=== PATIENT | male | born 1985 | race Caucasian/White ===

== ENCOUNTER 2020-11-10 21:17 | Inpatient (IN) | payer SELFPAY ==
[2020-11-10] MEDS ORDERED: NS 1,000 ML IV ONE (21:25)
[2020-11-10] MEDS ORDERED: HALOPERIDOL 5MG/ML VIAL (J1630 PER 1) IM ONE (21:30)
[2020-11-10] MEDS ORDERED: diphenhydrAMINE 50MG/ML VIAL (J1200) IM ONE (21:30)
[2020-11-10] MEDS ORDERED: diphenhydrAMINE 50MG/ML VIAL (J1200) As Ordered ONE (21:31)
[2020-11-10] MEDS ORDERED: HALOPERIDOL 5MG/ML VIAL (J1630 PER 1) As Ordered ONE (21:31)
[2020-11-10] MEDS ORDERED: diphenhydrAMINE 50MG/ML VIAL (J1200) IM STA (21:40)
[2020-11-10 21:56] LABS: BASO # 0.1 10^3/uL (0.0-0.2); BASO % 0.9 % (0.0-1.0); EOS # 0.3 10^3/uL (0.0-0.5); EOS % 3.6 % (0.0-3.0); HEMATOCRIT 39.4 % (42.0-52.0); LYMPH # 2.7 10^3/uL (1.5-5.0); LYMPH % 38.5 % (24.0-44.0); MEAN CORPUSCULAR HEMOGLOBIN 29.3 pg (27.0-33.0); MEAN CORPUSCULAR VOLUME 88.7 fl (80.0-96.0); MONO # 0.8 10^3/uL (0.0-0.8); MONO % 10.8 % (2.0-8.0); NEUTROPHILS # 3.2 10^3/uL (1.5-8.5); NEUTROPHILS % 45.9 % (36.0-66.0); PLATELET COUNT, AUTOMATED 209 10^3/uL (150-450); RED BLOOD COUNT 4.44 10^6/uL (4.30-6.10)
[2020-11-10 22:23] LABS: AMPHETAMINES LEVEL URINE NEGATIVE (NEGATIVE); BARBITURATES URINE NEGATIVE (NEGATIVE); BENZODIAZEPINES URINE POSITIVE (NEGATIVE); CANNABINOIDS URINE POSITIVE (NEGATIVE); COCAINE METABOLITE URINE POSITIVE (NEGATIVE); METHADONE URINE NEGATIVE (NEGATIVE); OPIATES URINE POSITIVE (NEGATIVE); PHENCYCLIDINE URINE NEGATIVE (NEGATIVE)
[2020-11-10 22:32] LABS: ACETAMINOPHEN LEVEL < 2.0 UG/ML (10.0-30.0); ALT/SGPT 13 U/L (12-78); BILIRUBIN,DIRECT < 0.1 MG/DL (0.0-0.2); BILIRUBIN,TOTAL 0.4 MG/DL (0.2-1.0); BLOOD UREA NITROGEN 14 MG/DL (7-18); CALCIUM LEVEL 8.9 MG/DL (8.5-10.1); CARBON DIOXIDE LEVEL 30 MEQ/L (21-32); CHLORIDE LEVEL 108 MEQ/L (98-107); CPK CREATINE PHOSPHOKINASE 78 U/L (39-308); CREATININE FOR GFR 1.16 MG/DL (0.70-1.30); ETHYL ALCOHOL (ETHANOL) < 0.003 % (0.000-0.010); GLOMERULAR FILTRATION RATE > 60.0 (>60); GLUCOSE, FASTING 88 MG/DL (70-100); POTASSIUM SERUM 4.9 MEQ/L (3.5-5.1); SALICYLATE LEVEL < 1.7 MG/DL (5.0-30.0); SODIUM LEVEL 143 MEQ/L (136-145); TOTAL PROTEIN 7.7 GM/DL (6.4-8.2)
[2020-11-11] VITALS (25 sets, daily range): BP systolic 109–191; BP diastolic 60–97
[2020-11-11] MEDS ORDERED: ETOMIDATE INJ 20MG/10ML VIAL IV ONE (01:50)
[2020-11-11] MEDS ORDERED: propofoL 1,000 MG in IV 1 EA IV SCH (01:50)
[2020-11-11] MEDS ORDERED: SUCCINYLCHOLINE INJ 200 MG/10 ML VIAL (J0330) IV ONE (01:50)
--- NOTE | 2020-11-11 02:51 | REPVR ---
PROCEDURE INFORMATION: Exam: XR Chest Exam date and time: 11/11/2020 2:35 AM Age: 35 years old Clinical indication: Post intubation, tube placement TECHNIQUE: Imaging protocol: XR of the chest. Views: 1 view. COMPARISON: No relevant prior studies available. FINDINGS: Tubes, catheters and devices: An endotracheal tube is seen overlying the trachea, and the tip terminates 2.2 cm above the oneyda. Lungs: Unremarkable. No consolidation. No pulmonary edema. Pleural spaces: Unremarkable. No pleural effusion. No pneumothorax. Heart/Mediastinum: Unremarkable. No cardiomegaly. Bones/joints: There is a chronic healed fracture deformity involving the right proximal humeral diaphysis. IMPRESSION: Endotracheal tube terminating in the trachea 2.2 cm above the oneyda. Electronically signed by: Maico Burkett On 11/11/2020 02:51:16 AM
[2020-11-11 03:47] LABS: ABG BASE EXCESS 2.7 (-2.0-2.0); ABG HCO3 26.5 MEQ/L (22.0-26.0); ABG O2 SATURATION 98.7 % (95.0-99.0); ABG PARTIAL PRESSURE CO2 37.7 mmHg (35.0-45.0); ABG PARTIAL PRESSURE O2 135.9 mmHg (75.0-100.0); ABG STANDARD HCO3 26.9 MEQ/L (22.0-26.0); ABG TOTAL CO2 27.6 MEQ/L (22.0-29.0); ABG pH (ARTERIAL) 7.464 UNITS (7.350-7.450)
[2020-11-11] MEDS: NS 1,000 ML IV SCH ×2 (03:54→09:43)
[2020-11-11] MEDS: IPRATROPIUM 0.5MG/ALBUTEROL 2.5MG INH SOL UD 3ML (DUONEB) NEB SCH ×6 (04:00→23:59)
[2020-11-11 04:02] LABS: RSV AMPLIFICATION NEGATIVE (NEGATIVE)
[2020-11-11] MEDS: MIDAZOLAM INJ 2MG/2ML VIAL (J2250 PER 1MG) IV PRN ×8 (05:05→21:15)
[2020-11-11] MEDS: HEPARIN SOD (PORCINE) 5000UNITS/ML 1ML VIAL/SYRINGE SC SCH ×3 (05:12→21:06)
[2020-11-11] MEDS: propofoL 1,000 MG in IV 1 EA IV SCH ×5 (05:12→22:31)
--- NOTE | 2020-11-11 06:27 | ECGEPIP ---
[facility] [place] - ED Test Date: 2020-11-10 Pat Name: LD GARCIA Department: Room: - Gender: Male Bsa Officer: stalin : 1985 Requested By: DEE Reyes Order Number: [id number] Reading MD: Nakia Alanis Measurements Intervals [place] Rate: 63 P: 56 RI: 136 QRS: 71 QRSD: 100 T: 51 QT: 404 QTc: 413 Interpretive Statements Normal sinus rhythm with sinus arrhythmia Nonspecific ST T wave changes Delayed R wave progression No prior ECG for comparison Electronically Signed on 11-11-2020 6:27:27 EDT by Nakia Alanis
--- NOTE | 2020-11-11 08:45 | HPE ---
HISTORY AND PHYSICAL/CRITICAL CARE ADMIT NOTE DATE OF ADMISSION: 11/11/2020 START TIME: 314 STOP TIME: 349 HISTORY OF PRESENT ILLNESS: I was called to attend Chepe Bobo here in the emergency department. The patient has been examined, chart reviewed, and I spoke at length with the staff, including Dr. Brown. In essence, a 35-year-old gentleman unknown to this institution who was dropped off by friends at the ER. Apparently he was quite combative, abusive to staff, stating that he took large amounts of Xanax (20 mg) in an attempt to kill himself. Of interest, however, is that his tox screen was positive for not only benzodiazepines, but for cocaine, cannabinoids, as well as opiates. He was quite disruptive, combative, and requiring restraints. He was given Haldol. He then was somnolent. Quite some time later, he had issues with sonorous respirations. Nasal trumpet was placed. He did well for some time. He then had episodes of oxygen desaturations and apneic spells and was then intubated. ALLERGIES: To medications unobtainable. PAST MEDICAL HISTORY: Unobtainable. SOCIAL HISTORY: Unobtainable. FAMILY HISTORY: Unobtainable. PHYSICAL EXAMINATION: GENERAL APPEARANCE: Currently reveals a sedate gentleman who appears his stated age here in the ER orally intubated with an orogastric tube in place. VITAL SIGNS: Rate is generally in the 60s with a sinus mechanism. Blood pressure 138/100, respiratory rate currently 18 via the ventilator. HEENT: Does show pupils are small, but react. They are both midline. Sclerae clear and nonicteric. Trachea is in the midline. Mucous membranes of the nose and mouth are moist. Dentition in good repair. CHEST: Clear to both auscultation and percussion. Expansion symmetric and no significant focal adventitious breath sounds are identified. CARDIAC: Distant and regular. Peripheral pulses are palpable. No obvious edema. There is no murmur, gallop or rub. ABDOMEN: Soft. There are active bowel sounds. No obvious organomegaly or masses. EXTREMITIES: Do show some superficial lacerations and multiple tattoos, but no cyanosis or clubbing. NEUROLOGIC: He is quite sedate and currently on propofol. PSYCHIATRIC: Shows him to be sedate. IMAGING DATA: Chest x-ray shows the endotracheal tube in good position. No obvious infiltrates or pneumothorax. LABORATORY DATA: Other laboratories show a white blood cell count of 7.0, hemoglobin 13.0, platelet count of 209,000, segs 46%, and no bands. Sodium 143, K 4.9, chloride 108, CO2 of 30, BUN 14, creatinine 1.16. LFTs are unremarkable. Tox screen as outlined above. His first blood gas in the ER prior to intubation had a pH of 7.278, pCO2 of 64.8, and a pO2 of 106. Repeat blood gas now on an assist control of 18, tidal volume 450, PEEP of 5, FiO2 of 40% has a pH of 7.464, pO2 of 37.7, and a PaO2 of 136. IMPRESSION: 1. Polypharmacy overdose in a suicide attempt. 2. Respiratory failure on the basis of the above. RECOMMENDATIONS: At this point, he is intubated, sedated, and mechanically ventilated. We will assure adequate volume resuscitation. Ventilator changes will be made in view of his most recent arterial blood gas. For now, he will be sedated. Ulcer and DVT prophylaxis have been ordered. We will monitor his chest x-ray in view of his mental status issues, but there is no episode of vomiting and it is unlikely that he has aspirated. When he is able to be extubated, he will need psychiatric evaluation, as clearly he stated a suicide attempt. At this point, we will facilitate transfer to the ICU. Further recommendations will be made in the progress record as new information becomes available. I left the bedside at 0350 hours. CRITICAL CARE TIME: 35 minutes delivered at the bedside not including procedures.
[2020-11-11] MEDS: PANTOPRAZOLE 40MG VIAL (C9113 PER 1) IV SCH (09:01)
[2020-11-11] MEDS: CHLORHEXIDINE GLUCONATE 0.12 % 15ML UDC (PERIDEX ORAL RINSE) MT SCH ×2 (09:01→21:05)
[2020-11-11 14:08] LABS: VENOUS BASE EXCESS 2.5 (-2.0-2.0); VENOUS HCO3 26.6 MEQ/L (23.0-27.0); VENOUS O2 SATURATION 98.9 % (60.0-80.0); VENOUS PARTIAL PRESSURE O2 142.4 mmHg (30.0-50.0); VENOUS PH 7.451 UNITS (7.330-7.430); VENOUS STANDARD HCO3 26.8 MEQ/L; VENOUS TOTAL CO2 27.8 MEQ/L (24.0-28.0)
[2020-11-11] MEDS ORDERED: LORazepam 2 MG/ML VIAL IM PRN (14:10)
[2020-11-11] MEDS: HALOPERIDOL 5MG/ML VIAL (J1630 PER 1) IV PRN ×2 (14:31→17:46)
[2020-11-11 14:43] LABS: BLOOD UREA NITROGEN 13 MG/DL (7-18); CALCIUM LEVEL 8.3 MG/DL (8.5-10.1); CARBON DIOXIDE LEVEL 27 MEQ/L (21-32); CHLORIDE LEVEL 111 MEQ/L (98-107); CREATININE FOR GFR 0.96 MG/DL (0.70-1.30); GLOMERULAR FILTRATION RATE > 60.0 (>60); GLUCOSE, FASTING 88 MG/DL (70-100); POTASSIUM SERUM 3.8 MEQ/L (3.5-5.1); SODIUM LEVEL 143 MEQ/L (136-145)
[2020-11-11] MEDS: KCL 20MEQ IN D5/0.45NS 1000ML 1,000 ML IV SCH ×2 (15:12→22:06)
[2020-11-11] MEDS: MORPHINE 2 MG/ML 1ML VIAL (J2270) IV PRN (21:15)
[2020-11-12] VITALS (22 sets, daily range): BP systolic 116–152; BP diastolic 63–90
[2020-11-12] MEDS: MIDAZOLAM INJ 2MG/2ML VIAL (J2250 PER 1MG) IV PRN ×6 (00:48→21:07)
[2020-11-12] MEDS: MORPHINE 2 MG/ML 1ML VIAL (J2270) IV PRN ×2 (00:55→03:42)
[2020-11-12] MEDS: propofoL 1,000 MG in IV 1 EA IV SCH ×9 (01:31→22:58)
[2020-11-12] MEDS: IPRATROPIUM 0.5MG/ALBUTEROL 2.5MG INH SOL UD 3ML (DUONEB) NEB SCH ×5 (03:12→20:07)
[2020-11-12] MEDS: KCL 20MEQ IN D5/0.45NS 1000ML 1,000 ML IV SCH ×3 (04:42→19:57)
[2020-11-12 04:58] LABS: BASO # 0.1 10^3/uL (0.0-0.2); BASO % 0.5 % (0.0-1.0); EOS % 0.1 % (0.0-3.0); HEMATOCRIT 37.4 % (42.0-52.0); HEMOGLOBIN 12.7 g/dl (13.5-17.5); LYMPH # 1.4 10^3/uL (1.5-5.0); LYMPH % 9.5 % (24.0-44.0); MEAN CORPUSCULAR HEMOGLOBIN 29.3 pg (27.0-33.0); MEAN CORPUSCULAR VOLUME 86.2 fl (80.0-96.0); MONO % 6.7 % (2.0-8.0); NEUTROPHILS % 82.6 % (36.0-66.0); PLATELET COUNT, AUTOMATED 178 10^3/uL (150-450); RED BLOOD COUNT 4.34 10^6/uL (4.30-6.10); WHITE BLOOD COUNT 14.5 10^3/uL (4.0-10.0)
[2020-11-12 05:31] LABS: ALBUMIN 3.2 GM/DL (3.2-5.2); ALT/SGPT 14 U/L (12-78); BILIRUBIN,TOTAL 0.5 MG/DL (0.2-1.0); BLOOD UREA NITROGEN 9 MG/DL (7-18); CALCIUM LEVEL 8.3 MG/DL (8.5-10.1); CARBON DIOXIDE LEVEL 27 MEQ/L (21-32); CHLORIDE LEVEL 108 MEQ/L (98-107); CHOLESTEROL LEVEL 140 MG/DL (< 200); CPK CREATINE PHOSPHOKINASE 423 U/L (39-308); CREATININE FOR GFR 1.03 MG/DL (0.70-1.30); GLOMERULAR FILTRATION RATE > 60.0 (>60); GLUCOSE, FASTING 140 MG/DL (70-100); LDH LACTATE DEHYDROGENASE 232 U/L (87-241); PHOSPHORUS LEVEL 2.7 MG/DL (2.5-4.9); POTASSIUM SERUM 3.5 MEQ/L (3.5-5.1); SODIUM LEVEL 142 MEQ/L (136-145); TOTAL PROTEIN 6.4 GM/DL (6.4-8.2); TRIGLYCERIDES LEVEL 104 MG/DL (<150)
[2020-11-12] MEDS: HEPARIN SOD (PORCINE) 5000UNITS/ML 1ML VIAL/SYRINGE SC SCH ×3 (05:36→21:06)
[2020-11-12 05:49] LABS: ABG BASE EXCESS 0.7 (-2.0-2.0); ABG HCO3 24.4 MEQ/L (22.0-26.0); ABG O2 SATURATION 94.6 % (95.0-99.0); ABG PARTIAL PRESSURE CO2 36.3 mmHg (35.0-45.0); ABG PARTIAL PRESSURE O2 68.6 mmHg (75.0-100.0); ABG TOTAL CO2 25.6 MEQ/L (22.0-29.0); ABG pH (ARTERIAL) 7.446 UNITS (7.350-7.450)
--- NOTE | 2020-11-12 08:00 | REP ---
INDICATION: Resp Failure COMPARISON: 11/11/2020 TECHNIQUE: Portable AP view of the chest FINDINGS: Endotracheal tube is approximately 20 mm from the oneyda. Nasogastric tube in satisfactory position. Mediastinum and cardiac silhouette are stable and within normal limits. Lung richards are relatively clear although trace right basilar atelectasis cannot be excluded. No obvious effusion. No pneumothorax. Skeletal structures are intact. IMPRESSION: 1. Lines and tubes as described above. 2. Cannot exclude trace right basilar atelectasis. <Electronically signed by Hector Ashton > 11/12/20 7502
[2020-11-12] MEDS: PANTOPRAZOLE 40MG VIAL (C9113 PER 1) IV SCH (08:22)
[2020-11-12] MEDS: CHLORHEXIDINE GLUCONATE 0.12 % 15ML UDC (PERIDEX ORAL RINSE) MT SCH ×2 (08:22→21:06)
[2020-11-12] MEDS ORDERED: POTASSIUM CHLORIDE 10% LIQ 20 MEQ/15 ML UDC PO ONE (09:15)
--- NOTE | 2020-11-12 09:33 | REP ---
INDICATION: R/O foreign body..retained drug paraphernalia COMPARISON: None TECHNIQUE: Axial noncontrast images from the lung bases to the pubic symphysis with coronal and sagittal reformations. This CT examination was performed using the following dose reduction techniques: Automated exposure control, adjustment of mA and/or kv according to the patient's size, and use of iterative reconstruction technique. FINDINGS: Lung bases demonstrate right middle lobe and bilateral lower lobe consolidations (right greater than left) along with partial collapse to the right lower lobe and left lower lobe atelectasis. No significant pleural effusions are identified. Liver, spleen, pancreas, gallbladder, bilateral adrenal glands and kidneys are normal. The enteric system is unremarkable and without obstruction or acute inflammatory process. Normal terminal ileum and appendix identified in the right lower quadrant. Pelvis demonstrates normal bladder with Fuller catheter and age-appropriate prostate/seminal vesicles. No ascites. No free air. No adenopathy. No focal inflammatory stranding. Abdominal aorta without aneurysm. Musculoskeletal structures are intact and without acute osseous abnormality. There is no evidence for foreign body. IMPRESSION: Significant pulmonary parenchymal changes most consistent with multifocal pneumonia (right greater than left). No acute abdominopelvic pathology appreciated. No evidence for foreign body. <Electronically signed by Hector Ashton > 11/12/20 0993
[2020-11-12] MEDS: PIPERACILLIN/TAZOBACTAM SOD 3.375 GM in D5W MINI-BAG PLUS 50 ML IV SCH ×3 (09:37→21:07)
--- NOTE | 2020-11-12 10:19 | CCN ---
CRITICAL CARE NOTE DATE: 11/12/2020 START TIME: 08 STOP TIME: 0900 SUBJECTIVE: I again attended Chepe Smith here in the Intensive Care Unit. Patient was examined and chart was reviewed, I spoke at length with the nurse at the bedside. T-max overnight 100.1, blood pressure 120 to 150s, heart rate 100 to 120 with a sinus mechanism, respiratory rate generally is over the ventilator. I and O's midnight to midnight: 4493 ml in with 2365 ml out. Drug contraband in plastic bags were found within his rectum last night when the nurses tried to place a rectal probe. One bag is removed and the nurse reports there are other bags palpable but were unable to be retrieved even after an enema. Most recent laboratories shows a white blood cell count of 14.5, hemoglobin 12.7, platelet count 178,000, 82% segs, no bands. Sodium 142, K 3.5, chloride 108, CO2 27, BUN 9, creatinine 1.03, glucose of 140. CK mildly elevated at 423. The rest of his LFTs are unremarkable. Blood gas done this morning on a PRBC rate of 60 and tidal volume 450, PEEP of 5, FIO2 of 21%, has a pH of 7.446, pCO2 36.3, pO2 of 68.6. Chest x-ray shows the endotracheal tube in good position. I do believe there is an early infiltrate at the right base. I cannot rule out one at the left base consistent with his presentation and suspected aspiration. OBJECTIVE: GENERAL: He is sedated but moves all extremities when aroused. When sedation is lightened, he is agitated, uncooperative and combative. HEENT: Pupils react, sclera clear. Trachea is in the midline. Oral endotracheal and orogastric tube are in place. Membranes are moist. NECK: No obvious JVD or adenopathy. Trachea is in the midline. CHEST: Clear to both auscultation and percussion. Expansion symmetric and no significant focal adventitious breath sounds are identified. There may be some faint crackles at the extreme bases but no convincing rhonchi. CARDIAC: Borderline tachycardic but regular. Peripheral pulses palpable, no edema. ABDOMEN: Soft, active bowel sounds. No convincing organomegaly or masses. EXTREMITIES: No cyanosis or clubbing. NEUROLOGIC: He is sedate and moves all extremities. He is currently calm on Propofol. CURRENT MEDICATIONS: 1. Haldol and Ativan p.r.n. 2. Propofol drip. 3. DVT prophylaxis with Heparin and Protonix. 4. Morphine p.r.n. 5. Antibiotics were started this morning. 6. He gets p.r.n. Versed. ASSESSMENT: The most pressing problems requiring my immediate presence at the bedside: 1. Hypoxemic respiratory failure secondary to polypharmacy overdose. 2. Suicidal gesture with ingestion of large amounts of benzodiazepines. 3. Polypharmacy overdose. 4. Aspiration pneumonitis. At this point, we will have Family Medicine Physician see if they can get us more information regarding his whereabouts and history prior to his presentation. He still has foreign body within the rectal vault according to the nursing staff. Will get a CT of the abdomen and pelvis to rule out others. Once we have that information, we will likely add cathartics. We will begin antimicrobials as with an elevated white count, a low grade fever and his chest x-ray I do believe he likely aspirated at the time of presentation. Will check a procalcitonin. He will need psychiatric evaluation formally and a sitter once he is to be extubated. Due to the fact that he presented with a large amount of drug ingestion and statements concerning self-harm he will clearly need inpatient evaluation and be kept involuntarily. At this point we will proceed as outlined above. My hope is that within the next 24 to 48 hours we can achieve enough of control of his behavior to safely extubate him. If we are not able to extubate him by tomorrow morning we will need to begin enteral feeds. Ulcer and DVT prophylaxis were placed. We will replete his electrolytes. Overall, in view of the above he remains critically ill. I left the bedside at 0900 hours. Forty minutes of critical care time at the bedside not including procedures.
[2020-11-12] MEDS ORDERED: SORBITOL 70% 30ML UNIT DOSE CUP NG ONE (12:00)
[2020-11-12] MEDS ORDERED: ETOMIDATE INJ 20MG/10ML VIAL ONE (15:14)
[2020-11-12] MEDS ORDERED: SUCCINYLCHOLINE 100 MG/5 ML SYRINGE (J0330) ONE (15:14)
[2020-11-12 15:29] LABS: BLOOD UREA NITROGEN 8 MG/DL (7-18); CALCIUM LEVEL 8.2 MG/DL (8.5-10.1); CARBON DIOXIDE LEVEL 24 MEQ/L (21-32); CHLORIDE LEVEL 107 MEQ/L (98-107); GLOMERULAR FILTRATION RATE > 60.0 (>60); GLUCOSE, FASTING 124 MG/DL (70-100); POTASSIUM SERUM 3.7 MEQ/L (3.5-5.1); SODIUM LEVEL 139 MEQ/L (136-145)
[2020-11-13] VITALS (12 sets, daily range): BP systolic 118–172; BP diastolic 59–90
[2020-11-13] MEDS: MIDAZOLAM INJ 2MG/2ML VIAL (J2250 PER 1MG) IV PRN ×4 (00:31→08:39)
[2020-11-13] MEDS: IPRATROPIUM 0.5MG/ALBUTEROL 2.5MG INH SOL UD 3ML (DUONEB) NEB SCH ×7 (00:57→23:14)
[2020-11-13] MEDS: propofoL 1,000 MG in IV 1 EA IV SCH ×3 (01:18→06:54)
[2020-11-13] MEDS: KCL 20MEQ IN D5/0.45NS 1000ML 1,000 ML IV SCH ×2 (04:09→06:55)
[2020-11-13 05:04] LABS: BASO # 0.1 10^3/uL (0.0-0.2); BASO % 0.5 % (0.0-1.0); EOS # 0.2 10^3/uL (0.0-0.5); EOS % 1.3 % (0.0-3.0); HEMATOCRIT 35.4 % (42.0-52.0); HEMOGLOBIN 11.8 g/dl (13.5-17.5); LYMPH # 1.7 10^3/uL (1.5-5.0); LYMPH % 10.8 % (24.0-44.0); MEAN CORPUSCULAR HEMOGLOBIN 28.9 pg (27.0-33.0); MEAN CORPUSCULAR HGB CONC 33.3 g/dl (32.0-36.5); MEAN CORPUSCULAR VOLUME 86.6 fl (80.0-96.0); MONO # 0.8 10^3/uL (0.0-0.8); MONO % 5.5 % (2.0-8.0); NEUTROPHILS # 12.5 10^3/uL (1.5-8.5); NEUTROPHILS % 81.4 % (36.0-66.0); PLATELET COUNT, AUTOMATED 151 10^3/uL (150-450); RED BLOOD COUNT 4.09 10^6/uL (4.30-6.10); WHITE BLOOD COUNT 15.3 10^3/uL (4.0-10.0)
[2020-11-13] MEDS: HEPARIN SOD (PORCINE) 5000UNITS/ML 1ML VIAL/SYRINGE SC SCH ×3 (05:15→21:09)
[2020-11-13] MEDS: PIPERACILLIN/TAZOBACTAM SOD 3.375 GM in D5W MINI-BAG PLUS 50 ML IV SCH ×4 (05:15→21:06)
[2020-11-13 05:33] LABS: ABG BASE EXCESS 0.2 (-2.0-2.0); ABG HCO3 23.4 MEQ/L (22.0-26.0); ABG O2 SATURATION 92.5 % (95.0-99.0); ABG PARTIAL PRESSURE CO2 33.2 mmHg (35.0-45.0); ABG PARTIAL PRESSURE O2 58.4 mmHg (75.0-100.0); ABG STANDARD HCO3 24.6 MEQ/L (22.0-26.0); ABG TOTAL CO2 24.4 MEQ/L (22.0-29.0); ABG pH (ARTERIAL) 7.466 UNITS (7.350-7.450)
[2020-11-13 05:35] LABS: ALBUMIN 2.6 GM/DL (3.2-5.2); ALT/SGPT 16 U/L (12-78); BILIRUBIN,TOTAL 0.6 MG/DL (0.2-1.0); BLOOD UREA NITROGEN 6 MG/DL (7-18); CALCIUM LEVEL 8.1 MG/DL (8.5-10.1); CARBON DIOXIDE LEVEL 25 MEQ/L (21-32); CHLORIDE LEVEL 109 MEQ/L (98-107); CHOLESTEROL LEVEL 117 MG/DL (< 200); CPK CREATINE PHOSPHOKINASE 156 U/L (39-308); CREATININE FOR GFR 0.87 MG/DL (0.70-1.30); GLOMERULAR FILTRATION RATE > 60.0 (>60); GLUCOSE, FASTING 104 MG/DL (70-100); LDH LACTATE DEHYDROGENASE 149 U/L (87-241); SODIUM LEVEL 138 MEQ/L (136-145); TOTAL PROTEIN 6.3 GM/DL (6.4-8.2); TRIGLYCERIDES LEVEL 87 MG/DL (<150)
[2020-11-13] MEDS ORDERED: LIDOCAINE 1% MDV 20ML VIAL As Ordered ONE (08:36)
[2020-11-13] MEDS: CHLORHEXIDINE GLUCONATE 0.12 % 15ML UDC (PERIDEX ORAL RINSE) MT SCH (09:13)
[2020-11-13] MEDS: PANTOPRAZOLE 40MG VIAL (C9113 PER 1) IV SCH (09:13)
[2020-11-13] MEDS ORDERED: LIDOCAINE 1% MDV 20ML VIAL TOP ONE (09:20)
--- NOTE | 2020-11-13 09:40 | REP ---
INDICATION: Resp Failure. COMPARISON: 11/12/2020. TECHNIQUE: Single portable AP view of the chest was performed. FINDINGS: Endotracheal tube and nasogastric tube appear unchanged. Heart mediastinum are unchanged, there is no cardiomegaly. There is increased consolidative atelectasis in the right lower lobe, with elevation of the right hemidiaphragm. There is no change in mild left retrocardiac parenchymal opacity. IMPRESSION: Increased consolidative atelectasis right lower lobe. Otherwise no change. <Electronically signed by Ignacio Crockett > 11/13/20 0937
--- NOTE | 2020-11-13 09:48 | CCN ---
CRITICAL CARE NOTE DATE: 11/13/2020 START TIME: 809 STOP TIME: 844 SUBJECTIVE: I again attended Chepe Bobo here in the Intensive Care Unit. Patient has been examined and chart reviewed. He is still intermittently very agitated and requires increased sedation with any stimulation. T-max overnight 97.9, blood pressure 118 to the 130s, heart rate 90 to the low 100s with a sinus mechanism. He does over breathe the ventilator. Ins and outs midnight to midnight were 4,226 mL in with 4,030 mL out. This morning white blood cell count 15.3, hemoglobin 11.8, platelet count 151,000, 81% segs, no bands. Sodium 138, potassium 4.0, chloride 109, CO2 25, BUN 6, creatinine 0.87, glucose 104. LFTs acceptable. Blood gas done this morning on a PRVC, rate of 14, tidal volume 450, PEEP of 5, FiO2 of 21% has a pH 7.466, pCO2 33.2, and a PaO2 of 58.4. Chest x-ray shows progressive atelectasis at the right base. Better aeration at the left. Endotracheal tube and OG tube in good position. OBJECTIVE: GENERAL: He is arousable. Does not always follow commands. Intermittently agitated despite 70 mcg of Propofol and intermittent Versed. HEENT: Pupils react. Sclera clear. Trachea is in the midline. Membranes are moist. CHEST: Scattered rhonchi, right greater than left, with decreased breath sound intensity at the right base. Expansion is symmetric. CARDIAC: Regular with no murmur or gallop. Peripheral pulses palpable. No edema. ABDOMEN: Soft, nontender with active bowel sounds. No significant organomegaly or masses. EXTREMITIES: No cyanosis or clubbing.. MOST PRESSING PROBLEMS REQUIRING MY PRESENCE AT THE BEDSIDE: 1. Aspiration pneumonia. 2. Hypoxemic respiratory failure secondary to polypharmacy overdose. 3. Multidrug ingestion in a suicide gesture. 4. Drug abuse. PLAN: At this point will plan fiberoptic bronchoscopy as he has progressive atelectasis and is getting significant secretions posteriorly as well from the NIRU tube. My hopes is that we still may be able to proceed to an extubation trial today, but certainly given the tenacious nature of his secretions will try to optimize him as best we can. My concern is that he is still requiring very high levels of sedation for protection of not only himself but the staff. Will hold off on enteral nutrition in the hopes of extubating today. He is on Zosyn. Final ID on his sputum shows Strep pyogenes and Strep pneumoniae yeast like organism. Sensitivities are pending. When extubated, he will need a sitter and suicide precautions and will need to be seen by our mental health associates. At this point, we will proceed as outlined above. He remains critically ill. I left the bedside at 0845 hours. Thirty-five minutes of critical care time at the bedside not including procedures.
--- NOTE | 2020-11-13 09:48 | RO ---
OPERATIVE NOTE DATE OF OPERATION: 11/13/2020 PREOPERATIVE DIAGNOSIS: Mucous plugging. POSTOPERATIVE DIAGNOSIS: Mucous plugging. PROCEDURE: Therapeutic bronchoscopy with aspiration of secretions was performed emergently. SURGEON: Milton Gautam M.D. COOK SUPERVISOR: None. ANESTHESIA: Intravenous propofol, which was already running and an additional 2 mg of Versed. Local anesthesia was 1% Xylocaine via the endotracheal tube and through the bronchoscope. OPERATIVE FINDINGS: Diffuse tenacious secretions with mucous plugs in the right lower lobe. DESCRIPTION OF PROCEDURE: After the patient was identified and the above anesthesia given, the patient was ventilated with an Ambu bag valve device. The scope was then passed through the existing endotracheal tube. Thick tenacious secretions were encountered in the tube and suctioned clear. Repeat cultures were sent. The tube was found to be about 2-3 cm above the oneyda. Both mainstem bronchi easily identifiable. In the distance in the right lower quadrant significance secretions were able to be seen. Right lung was then entered. 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 These were all only minimally edematous with minimal secretions. Bronchus intermedius did have significant secretions and these extended into all of the dependent subsegments of the right lower lobe. Eventually all segments and subsegments were able to be cleared of secretions with suctioning and saline lavage. Attention was then turned to the left. Upper and lower lobes easily identified generally widely patent with only minimal secretions distally. These were easily suctioned clear. No other endotracheal mucosal abnormalities were identified. The scope was then withdrawn and the procedure terminated. Oxygen saturation remained 99% or above throughout the exam. No complications noted.
--- NOTE | 2020-11-13 13:04 | IPNPDOC ---
Date Seen The patient was seen on 11/13/20. Progress Note SUBJECTIVE: Patient is a -year-old [RACE] [GENDER] with OBJECTIVE PHYSICAL EXAMINATION: VITAL SIGNS: Please see below. GENERAL: HEENT: CARDIOVASCULAR: . RESPIRATORY: . ABDOMINAL: EXTREMITIES: NEUROLOGICAL: PSYCHOLOGICAL: LABORATORY DATA, IMAGING STUDIES, MICROBIOLOGY: Please see below. Echocardiogram: . DVT prophylaxis ordered?: ASSESSMENT AND PLAN: This is a -year-old [RACE] [GENDER] with . PROBLEMS: 1. : . 2. : . 3. : . DISPOSITION: . VS, I&O, 24H, [facility] Vital Signs/I&O Vital Signs Date Time Temp Pulse Resp B/P (MAP) Pulse Ox O2 Delivery O2 Flow Rate FiO2 11/13/20 12:00 97 20 140/75 (96) 92 Room Air 11/13/20 09:40 8.0 35 11/13/20 08:00 97.3 I&O- Last 24 Hours up to 6 AM 11/13/20 06:00 Intake Total 3244.8 ml Output Total 3595 ml Balance -350.2 ml Laboratory Data 24H LABS Laboratory Tests 2 11/12/20 14:46: Anion Gap 8, Glomerular Filtration Rate > 60.0, Calcium Level 8.2L 11/13/20 04:39: Anion Gap 4L, Glomerular Filtration Rate > 60.0, Calcium Level 8.1L, Immature Granulocyte % (Auto) 0.5, Neutrophils (%) (Auto) 81.4H, Lymphocytes (%) (Auto) 10.8L, Monocytes (%) (Auto) 5.5, Eosinophils (%) (Auto) 1.3, Basophils (%) (Auto) 0.5, Neutrophils # (Auto) 12.5H, Lymphocytes # (Auto) 1.7, Monocytes # (Auto) 0.8, Eosinophils # (Auto) 0.2, Basophils # (Auto) 0.1, Nucleated Red Blood Cells % (auto) 0.0, Phosphorus Level 2.0#L, Total Bilirubin 0.6, Aspartate Amino Transf (AST/SGOT) 22, Alanine Aminotransferase (ALT/SGPT) 16, Alkaline Phosphatase 97, Lactate Dehydrogenase 149, Total Creatine Kinase 156, Total Protein 6.3L, Albumin 2.6L, Albumin/Globulin Ratio 0.7, Triglycerides Level 87, Cholesterol Level 117 11/13/20 05:25: Blood Gas Bicarbonate Standard 24.6, Arterial Blood pH 7.466H, Arterial Blood Partial Pressure CO2 33.2L, Arterial Blood Partial Pressure O2 58.4L, Arterial Blood Total CO2 24.4, Arterial Blood HCO3 23.4, Arterial Blood Base Excess 0.2, Arterial Blood Oxygen Saturation 92.5L CBC/BMP Laboratory Tests 11/12/20 14:46 11/13/20 04:39 Microbiology Microbiology 11/13/20 Gram Stain - Final, Resulted 11/13/20 Sputum Culture, Resulted Pending 11/11/20 Gram Stain - Final, Resulted 11/11/20 Sputum Culture - Preliminary, Resulted Streptococcus Pyogenes Grp A Streptococcus Pneumoniae Yeast Like Organism NELLY LU MD Nov 13, 2020 13:04
[2020-11-13] MEDS: MORPHINE 2 MG/ML 1ML VIAL (J2270) IV PRN (20:23)
[2020-11-13] MEDS: THIAMINE 100 MG TAB PO SCH (21:08)
[2020-11-13] MEDS: LORazepam 2 MG TAB PO PRN ×2 (21:08→22:30)
[2020-11-14] VITALS (7 sets, daily range): BP systolic 162–172; BP diastolic 94–98
[2020-11-14] MEDS: MORPHINE 2 MG/ML 1ML VIAL (J2270) IV PRN (02:03)
[2020-11-14] MEDS: IPRATROPIUM 0.5MG/ALBUTEROL 2.5MG INH SOL UD 3ML (DUONEB) NEB SCH ×2 (03:32→07:35)
[2020-11-14] MEDS: PIPERACILLIN/TAZOBACTAM SOD 3.375 GM in D5W MINI-BAG PLUS 50 ML IV SCH (05:22)
[2020-11-14] MEDS: HEPARIN SOD (PORCINE) 5000UNITS/ML 1ML VIAL/SYRINGE SC SCH ×2 (05:22→14:00)
[2020-11-14 05:26] LABS: BASO % 0.4 % (0.0-1.0); EOS % 0.3 % (0.0-3.0); HEMATOCRIT 35.8 % (42.0-52.0); HEMOGLOBIN 11.4 g/dl (13.5-17.5); LYMPH # 1.2 10^3/uL (1.5-5.0); LYMPH % 10.7 % (24.0-44.0); MEAN CORPUSCULAR HEMOGLOBIN 28.3 pg (27.0-33.0); MEAN CORPUSCULAR HGB CONC 31.8 g/dl (32.0-36.5); MEAN CORPUSCULAR VOLUME 88.8 fl (80.0-96.0); MONO # 0.5 10^3/uL (0.0-0.8); MONO % 4.7 % (2.0-8.0); NEUTROPHILS # 9.4 10^3/uL (1.5-8.5); NEUTROPHILS % 83.4 % (36.0-66.0); PLATELET COUNT, AUTOMATED 185 10^3/uL (150-450); RED BLOOD COUNT 4.03 10^6/uL (4.30-6.10); WHITE BLOOD COUNT 11.3 10^3/uL (4.0-10.0)
[2020-11-14] MEDS ORDERED: LevoFLOXacin 750 MG TABLET PO SCH (06:00)
[2020-11-14] MEDS: THIAMINE 100 MG TAB PO SCH (07:27)
[2020-11-14] MEDS: PANTOPRAZOLE 40MG VIAL (C9113 PER 1) IV SCH (07:27)
--- NOTE | 2020-11-14 07:40 | IPNPDOC ---
Date Seen The patient was seen on 11/14/20. Progress Note SUBJECTIVE: Patient is a -year-old [RACE] [GENDER] with OBJECTIVE PHYSICAL EXAMINATION: VITAL SIGNS: Please see below. GENERAL: HEENT: CARDIOVASCULAR: . RESPIRATORY: . ABDOMINAL: EXTREMITIES: NEUROLOGICAL: PSYCHOLOGICAL: LABORATORY DATA, IMAGING STUDIES, MICROBIOLOGY: Please see below. Echocardiogram: . DVT prophylaxis ordered?: ASSESSMENT AND PLAN: This is a -year-old [RACE] [GENDER] with . PROBLEMS: 1. : . 2. : . 3. : . DISPOSITION: . VS, I&O, 24H, [facility] Vital Signs/I&O Vital Signs Date Time Temp Pulse Resp B/P (MAP) Pulse Ox O2 Delivery O2 Flow Rate FiO2 11/14/20 06:00 82 172/98 11/14/20 05:33 98.9 18 92 Room Air 11/13/20 09:40 8.0 35 I&O- Last 24 Hours up to 6 AM 11/14/20 06:00 Intake Total 2714 ml Output Total 935 ml Balance 1779 ml Laboratory Data 24H LABS Laboratory Tests 2 11/14/20 05:06: Immature Granulocyte % (Auto) 0.5, Neutrophils (%) (Auto) 83.4H, Lymphocytes (%) (Auto) 10.7L, Monocytes (%) (Auto) 4.7, Eosinophils (%) (Auto) 0.3, Basophils (%) (Auto) 0.4, Neutrophils # (Auto) 9.4H, Lymphocytes # (Auto) 1.2L, Monocytes # (Auto) 0.5, Eosinophils # (Auto) 0.0, Basophils # (Auto) 0.0, Nucleated Red Blood Cells % (auto) 0.0 CBC/BMP Laboratory Tests 11/14/20 05:06 Microbiology Microbiology 11/13/20 Gram Stain - Final, Resulted 11/13/20 Sputum Culture, Resulted Pending 11/11/20 Gram Stain - Final, Resulted 11/11/20 Sputum Culture - Preliminary, Resulted Moraxella Catarrhalis Streptococcus Pyogenes Grp A Streptococcus Pneumoniae Yeast Like Organism NELLY LU MD Nov 14, 2020 07:40
[2020-11-14] MEDS ORDERED: ACETAMINOPHEN TAB 650MG DOSE (2X325MG) PO PRN (08:00)
--- NOTE | 2020-11-14 08:26 | REP ---
INDICATION: Resp Failure COMPARISON: 11/13/2020 TECHNIQUE: Portable AP view of the chest FINDINGS: Diffuse patchy bilateral airspace disease appears increased from prior examination. Previous endotracheal tube and nasogastric tube have been removed. No obvious effusion. No pneumothorax. Cardiac silhouette is normal. IMPRESSION: Increased diffuse patchy bilateral airspace disease. <Electronically signed by Hector Ashton > 11/14/20 7993
[2020-11-14 08:39] LABS: ALBUMIN 3.1 GM/DL (3.2-5.2); ALT/SGPT 21 U/L (12-78); BILIRUBIN,TOTAL 0.6 MG/DL (0.2-1.0); BLOOD UREA NITROGEN 12 MG/DL (7-18); CALCIUM LEVEL 8.7 MG/DL (8.5-10.1); CARBON DIOXIDE LEVEL 18 MEQ/L (21-32); CHLORIDE LEVEL 110 MEQ/L (98-107); CHOLESTEROL LEVEL 121 MG/DL (< 200); CPK CREATINE PHOSPHOKINASE 749 U/L (39-308); CREATININE FOR GFR 0.73 MG/DL (0.70-1.30); GLOMERULAR FILTRATION RATE > 60.0 (>60); GLUCOSE, FASTING 79 MG/DL (70-100); LDH LACTATE DEHYDROGENASE 270 U/L (87-241); PHOSPHORUS LEVEL 2.6 MG/DL (2.5-4.9); POTASSIUM SERUM 4.2 MEQ/L (3.5-5.1); SODIUM LEVEL 137 MEQ/L (136-145); TOTAL PROTEIN 7.7 GM/DL (6.4-8.2); TRIGLYCERIDES LEVEL 111 MG/DL (<150)
--- NOTE | 2020-11-14 08:59 | MHCR ---
CONSULTATION DATE: 11/13/2020 It should be noted I am informed by nursing staff in the intensive care unit (ICU) that the patient has another record as well, [facility]. The date of there is 1985, and I am not quite sure what happened, but I am told they are one in the same patient. CHIEF COMPLAINT: He took an overdose. The chart is reviewed. The patient is interviewed. I am at the clinic. He is in the intensive care unit (ICU) in the hospital, and this is done via video. He is 35 years old and has taken an overdose. It should be noted a lot of the history is obtained from the chart. He was dropped at the hospital by a friend, who the patient later suggests is his roommate. He was thought to be in acute respiratory failure at the time. This was after an overdose, when he had taken 20 Xanax tablets. The patient says he remembers being asleep and then being at the hospital. Does not remember much prior to that. He does acknowledge taking the overdose initially but later suggests that he was asleep at the time, so those factors are unclear. Had a hard time breathing. Was seen in the emergency room (ER) by Dr. Gautam, critical care. He was intubated and was treated in the ICU. Extubated earlier today. Has pneumonia. Is being treated by intravenous antibiotics. Given the substantial overdose, as per the ER record suggests it was an attempt to kill himself. I have been asked to see him by the hospitalist. Urine toxicology is positive for cannabinoids, opiates, benzodiazepines. He acknowledges using cocaine and says smokes it. He says he recognized me as his doctor. I informed him as to who I am and my role. (When I reviewed the other records, [place] [facility], which has a slightly different date of of 1985, I did see him on consultation almost exactly 7 years ago on 11/09/2013, when he had taken an overdose of heroin. Please refer to that consultation note for history regarding the circumstances at the time and background history, which is extensive, for substance misuse, including opiates, and at one point the patient was on Suboxone, about 10 years ago, when he was seen by Dr. Grove). At that time was diagnosed with heroin intoxication and dependence, and it was recommended that he be referred back to [facility], which he attended. Not sure if he attended any outpatient facilities at present. He does say has family in the area, a sister. Staff indicates sister had been there a little earlier. Per the ER record, when he came to the hospital was quite confused, agitated, and needed restraints and sedation. PAST PSYCHIATRIC HISTORY: Please refer to previous summary, when he was treated for opiate dependence. Used Suboxone. At that time had had no history of suicide attempts or inpatient hospitalizations for psychiatry. I am not aware of any history since then in the last several years, as information from his was currently limited. SUBSTANCE ABUSE HISTORY: As indicated above, has a long history of opiate and other substance dependence. SOCIAL HISTORY: Says lives with a roommate. No further details. Does say has a sister in the area. MENTAL STATUS EXAMINATION: He is neat. He is cooperative. He is lying in bed, somewhat soft spoken. No agitation. No psychomotor retardation. Coherent. Affect restricted in range. Denies any suicidal thoughts or intents at present, but somewhat vague on this. Did not indicate any firm plans. No fluctuation of consciousness. No homicidal ideation or intents that could be detected. No evidence of any psychosis either. He is alert for the most part. Is generally able to maintain attention as well as shift it. He is oriented to time, place, and person. Intellect average. Judgment and insight are compromised. ASSESSMENT: 1. Unspecified depressive disorder. 2. Benzodiazepine use disorder. 3. Consider cocaine use disorder. 4. Cannabis use disorder. 5. Status post overdose. 6. Acute respiratory failure, requiring intubation, currently extubated. As the circumstances of why he took the overdose are somewhat vague, but given significance and his poor judgment, current limited insight, he placed himself in considerable danger, including inadvertently. RECOMMENDATIONS: Given the above, I would recommend that the patient be hospitalized at psychiatry after he is fully medically stable. Needs further evaluation and stabilization from a psychiatric standpoint. Meets criteria for involuntary hospitalization at present. Thank you for the consult. If any questions, please call. The assessment took 30 minutes.
[2020-11-14] MEDS ORDERED: diazePAM 5MG TABLET PO SCH (09:00)
[2020-11-14] MEDS ORDERED: FOLIC ACID 1 MG TAB PO SCH (09:00)
[2020-11-14] MEDS ORDERED: CHLORASEPTIC SPRAY MT PRN (09:00)
[2020-11-14] MEDS ORDERED: MULTIVITAMINS/MINERALS THERAP 1 TAB PO SCH (09:00)
[2020-11-14] MEDS ORDERED: amLODIPine 5 MG TAB PO SCH (09:45)
[2020-11-14] MEDS: ALBUTEROL 90 MCG/ACT 8GM HFA INHALER INH SCH ×2 (11:37→15:35)
[2020-11-14] MEDS: LORazepam 2 MG TAB PO PRN (11:51)
[2020-11-14] MEDS ORDERED: THIA100TA PO (13:42)
[2020-11-14] MEDS ORDERED: PANT40TA29 PO (13:42)
[2020-11-14] MEDS ORDERED: DIAZ5TAB PO (13:42)
[2020-11-14] MEDS ORDERED: LORA2TA PO (13:42)
[2020-11-14] MEDS ORDERED: AMLO1TAB24 PO (13:42)
[2020-11-14] MEDS ORDERED: LEVO750T13 PO (13:42)
[2020-11-14] MEDS ORDERED: VENTAER INH (13:42)
[2020-11-14] MEDS ORDERED: ACET1TAB55 PO (13:42)
[2020-11-14] MEDS ORDERED: VITMTA PO (13:42)
[2020-11-14] MEDS ORDERED: FOLI1TAB11 PO (13:42)
--- NOTE | 2020-11-14 19:40 | DS.PDOC ---
Discharge Summary General Date of Admission Nov 11, 2020 at 03:40 Date of Discharge 11/14/20 Discharge Summary PROCEDURES PERFORMED DURING STAY: [None]. COMPLICATIONS/CHIEF COMPLAINT: Acute Respiratory Failure With Hypercapnia. HISTORY OF PRESENT ILLNESS: Quoted from Dr. Gautam's HPI " I was called to dev[facility]o here in the emergency department. The patient has been examined, chart reviewed, and I spoke at length with the staff, including Dr. Brown. In essence, a 35-year-old gentleman unknown to this institution who was dropped off by friends at the ER. Apparently he was quite combative, abusive to staff, stating that he took large amounts of Xanax (20 mg) in an attempt to kill himself. Of interest, however, is that his tox screen was positive for not only benzodiazepines, but for cocaine, cannabinoids, as well as opiates. He was quite disruptive, combative, and requiring restraints. He was given Haldol. He then was somnolent. Quite some time later, he had issues with sonorous respirations. Nasal trumpet was placed. He did well for some time. He then had episodes of oxygen desaturations and apneic spells and was then intubated. " HOSPITAL COURSE: Aspiration pneumopnia - likely a result of AMS 2/2 drug intoxication - patient treated with IV zosyn, final sputum cultures showed strep pneumo and strep pyogenes - switched to PO levaquin 750 mg daily x 7 days based on sensitities - WBC improved. Low grade temps - c/w tylenol for fevers prn Hypoxemic respiratory failure secondary to multidrug overdose in suicide attempt - patient was intubated on admission, under care of Dr. Gautam - extubated on 11/12/20 - s/p fiberoptic bronchoscopy due to progressive atelectasis, mucous plugging and significnat secretions. Suicidal attempt - patient was evaluated by Dr. Momin - hx of prior siucidal attempts/ideation - plan for admission to [facility] for risk of suicide and self injurious and risky behaviour Benzodiazepine withdrawal - patient to continue with CIWA protocol - added valium 5 mg Q12h, discussed regimen with Dr. Momin, agrees HTN -likely 2/2 benzodiazepine withdrawal - c/w CIWA, Valium - added amlodipine for improved BP control DISCHARGE MEDICATIONS: Please see below. ALLERGIES: Please see below. PHYSICAL EXAMINATION ON DISCHARGE: VITAL SIGNS: Please see below. GENERAL: alert, comfortable, flat affect HEENT: PERRLA, EOMI, moist mucous membranes NECK: supple, normal ROM CARDIOVASCULAR EXAMINATION: RRR, normal S1, S2, no gallops, no murmurs RESPIRATORY EXAMINATION: bilatreal rales at bases, no crackles, good inspiratory effort ABDOMINAL EXAMINATION: soft, non tender, non distended, BS+ EXTREMITIES: no edema, no cyanosis SKIN: warm, dry NEUROLOGICAL EXAMINATION: CN2-12 intact, no focal weakness or numbness. PSYCHIATRIC EXAMINATION: flat affect LABORATORY DATA: Please see below. IMAGING: CT abdo pelvis wo contrast (11/12/20); Significant pulmonary parenchymal changes most consistent with multifocal pneumonia (right greater than left). No acute abdominopelvic pathology appreciated. No evidence for foreign body. PROGNOSIS: good ACTIVITY: [As tolerated]. DIET: as tolerated DISCHARGE PLAN: discharge to [facility]. Continue with diazepam 5 mg BID with supplementary CIWA protocol (includes ativan) for CIWA > 8, in setting of benzodiazepine withdrawal. Also, continue course of levaquin for a 7 day course for a multifocal pneumonia, with isolated sputum culture positive for strep pneumonia. Ongoing psychiatric evaluation and treatment for suspected suicide attempt. DISPOSITION: [facility]. DISCHARGE INSTRUCTIONS: 1. Follow up with PCP 3-5 days after DC 2. Complete course of levaquin x 7 days 3. If you develop worsening cough, fever, chill, chest pain, shortness of breath, seizure or otherwise worsening of your symptoms, please call 911 or return to nearest ER. DISCHARGE CONDITION: [Stable]. TIME SPENT ON DISCHARGE: 35 minutes. Vital Signs/I&Os Vital Signs Date Time Temp Pulse Resp B/P (MAP) Pulse Ox O2 Delivery O2 Flow Rate FiO2 11/14/20 14:00 99.9 80 22 162/97 (118) 96 Room Air 11/13/20 09:40 8.0 35 I&O- Last 24 Hours up to 6 AM 11/14/20 06:00 Intake Total 2714 ml Output Total 935 ml Balance 1779 ml Laboratory Data Labs 24H Laboratory Tests 2 11/14/20 05:06: Immature Granulocyte % (Auto) 0.5, Neutrophils (%) (Auto) 83.4H, Lymphocytes (%) (Auto) 10.7L, Monocytes (%) (Auto) 4.7, Eosinophils (%) (Auto) 0.3, Basophils (%) (Auto) 0.4, Neutrophils # (Auto) 9.4H, Lymphocytes # (Auto) 1.2L, Monocytes # (Auto) 0.5, Eosinophils # (Auto) 0.0, Basophils # (Auto) 0.0, Nucleated Red Blood Cells % (auto) 0.0, Anion Gap 9, Glomerular Filtration Rate > 60.0, Calcium Level 8.7, Phosphorus Level 2.6#, Total Bilirubin 0.6, Aspartate Amino Transf (AST/SGOT) 39H, Alanine Aminotransferase (ALT/SGPT) 21, Alkaline Phosphatase 100, Lactate Dehydrogenase 270H, Total Creatine Kinase 749#H, Total Protein 7.7#, Albumin 3.1L, Albumin/Globulin Ratio 0.7, Triglycerides Level 111, Cholesterol Level 121 CBC/BMP Laboratory Tests 11/14/20 05:06 Microbiology Microbiology 11/13/20 Gram Stain - Final, Resulted 11/13/20 Sputum Culture, Resulted Pending 11/11/20 Gram Stain - Final, Complete 11/11/20 Sputum Culture - Final, Complete Moraxella Catarrhalis Streptococcus Pyogenes Grp A Streptococcus Pneumoniae Yeast Like Organism Discharge Medications Scheduled Albuterol Sulfate (Ventolin Hfa) 18 Gm Hfa.aer.ad, 2 PUFF INH RQID Amlodipine Besylate (Amlodipine Besylate) 5 Mg Tablet, 5 MG PO DAILY Diazepam (Diazepam) 5 Mg Tablet, 5 MG PO Q12H Folic Acid (Folic Acid) 1 Mg Tablet, 1 MG PO DAILY Levofloxacin (Levofloxacin) 750 Mg Tablet, 750 MG PO DAILY@06 Multivitamins (Thera M Plus Tablet) 1 Each Tablet, 1 TAB PO DAILY Pantoprazole Sodium (Pantoprazole Sodium) 40 Mg Tablet.dr, 40 MG PO DAILY Thiamine Hcl (Vitamin B-1) 100 Mg Tablet, 100 MG PO DAILY Scheduled PRN Acetaminophen (Acetaminophen) 325 Mg Tablet, 650 MG PO Q4HP PRN for MILD PAIN OR FEVER Lorazepam (Lorazepam) 2 Mg Tablet, 2 MG PO Q4H PRN for SEE PROTOCOL Allergies Coded Allergies: No Known Allergies (Unverified , 11/14/20) NELLY LU MD Nov 14, 2020 19:40
[2020-11-15] MEDS ORDERED: PANTOPRAZOLE 40MG TAB (PROTONIX) PO SCH (09:00)
== END 2020-11-14 17:30 | DRG 951 ==
LOC: M ED 21:17 → ENRESERV 11-11 03:25 → EDBD 11-11 03:40 → M ED INP 11-11 03:40 → ENRESERVTM 11-11 04:20 → M ICU 11-11 04:52
PROVIDERS: ADMIT Internal Medicine Pulmonary Disease; ATTEND Family Medicine
PROC: 5A1945Z Respiratory Ventilation, 24-96 Consecutive Hours (ICD-10-PCS; principal; 2020-11-11)
PROC: 0B9M8ZZ Drainage of Bilateral Lungs, Via Natural or Artificial Opening Endoscopic (ICD-10-PCS; 2020-11-13)
DX: T50.992A Poisoning by other drugs, medicaments and biological substances, intentional self-harm, initial encounter (principal); J96.91 Respiratory failure, unspecified with hypoxia; J69.0 Pneumonitis due to inhalation of food and vomit; Z78.1 Physical restraint status; J98.11 Atelectasis; I10 Essential (primary) hypertension; Z79.899 Other long term (current) drug therapy; F32.9 Major depressive disorder, single episode, unspecified; F12.90 Cannabis use, unspecified, uncomplicated; F11.90 Opioid use, unspecified, uncomplicated; F14.90 Cocaine use, unspecified, uncomplicated

== ENCOUNTER 2020-11-14 16:01 | Inpatient (IN) | payer OTHER, SELFPAY ==
[~2020-11-14 16:01] MED LIST: ACET1TAB55 PO; AMLO1TAB24 PO; DIAZ5TAB PO; FOLI1TAB11 PO; LEVO750T13 PO; LORA2TA PO; PANT40TA29 PO; THIA100TA PO; VENTAER INH; VITMTA PO
[2020-11-14] MEDS ORDERED: IBUPROFEN 400MG TAB PO PRN (16:10)
[2020-11-14] MEDS ORDERED: MOM 30ML SUSPENSION UDC PO PRN (16:10)
[2020-11-14] MEDS ORDERED: MAALOX 30 ML SUSP *UDC PO PRN (16:10)
[2020-11-14] MEDS ORDERED: CHLORASEPTIC SPRAY MT PRN (16:10)
[2020-11-14 18:46] VITALS: BP 168/98
[2020-11-14 18:47] VITALS: BP 168/98
[2020-11-14] MEDS: LORazepam 2 MG TAB PO PRN (19:04)
[2020-11-14] MEDS: ALBUTEROL 90 MCG/ACT 8GM HFA INHALER INH SCH (20:00)
[2020-11-14] MEDS: THIAMINE 100 MG TAB PO SCH (21:47)
[2020-11-14] MEDS: diazePAM 5MG TABLET PO SCH (21:56)
[2020-11-14 22:00] VITALS: BP 135/84
[2020-11-15] VITALS (10 sets, daily range): BP systolic 144–165; BP diastolic 78–111
[2020-11-15] MEDS: LevoFLOXacin 750 MG TABLET PO SCH (05:59)
[2020-11-15] MEDS: LORazepam 2 MG TAB PO PRN ×4 (06:16→20:06)
[2020-11-15] MEDS: ALBUTEROL 90 MCG/ACT 8GM HFA INHALER INH SCH ×4 (08:00→20:00)
[2020-11-15] MEDS: MULTIVITAMINS/MINERALS THERAP 1 TAB PO SCH (08:10)
[2020-11-15] MEDS: PANTOPRAZOLE 40MG TAB (PROTONIX) PO SCH (08:10)
[2020-11-15] MEDS: THIAMINE 100 MG TAB PO SCH ×2 (08:11→20:06)
[2020-11-15] MEDS: FOLIC ACID 1 MG TAB PO SCH (08:11)
[2020-11-15] MEDS: diazePAM 5MG TABLET PO SCH (08:11)
[2020-11-15] MEDS: amLODIPine 5 MG TAB PO SCH (08:12)
[2020-11-15] MEDS: NICOTINE 21MG/24HR 1 EA TRANSDERMAL TD PRN (10:45)
--- NOTE | 2020-11-15 12:10 | MHHPEPDOC ---
General Date Of Admission: Nov 14, 2020 Legal Status: 9.39 Chief Complaint I tried to kill myself. I lost my girlfriend 2 months ago from the drug overdose, lost another friend same time. ". History of Present Illness HISTORY OF THE PRESENT ILLNESS: Patient is a 35 -year-old , male, who [was admitted to ICU on November 11 after an intentional overdose of Xanax and heroine and was intubated but since medically stabilized and transferred to this unit on November 14. Patient has extensive history of opiate addiction, had about 5 different inpatient rehabilitation treatment, but no previous inpatient psychiatric admission. Patient admits that it was a suicidal attempt because he was upset and depressed after losing his girlfriend of 8 months and another friend from drug overdose at the same time. Patient now states that he doesn't really want to and wants to continue living and wants to get back into a methadone maintenance treatment. He is denying any hallucination, paranoia or any other psychotic symptoms but appears very withdrawn, blunted, and preoccupied, and admits that he is feeling sad and depressed but denies any more suicidal intent.]. Psychiatric Review of Systems Depression (2 or more weeks): depressed mood, feelings of excess/guilt, feelings of worthlesness, decreased energy, suicidal thoughts Ava (4 or more days of): denies Psychosis: denies PTSD: denies Anxiety: situational anxiety, stressor related anxiety Past Psychiatric History Previous Psychiatric Diagnosis: . Heroine addiction and polysubstance abuse Previous Psychiatric Admissions: . 5 different inpatient drug rehabilitation Suicide Attempts: . Denies any prior suicidal attempt Psychiatric Follow-up: Dropped out of the methadone maintenance program 6 months ago. Psychiatric medications: . Was getting benzodiazepines Past Medical History Medical Problems Denies any major medical history Head Injury: No Seizures: No Hospitalizations: No Surgeries: No Family Medical/Psychiatric HX Medical Problems Noncontributory Psychiatric Disorders: No Addiction: Yes (. Both his parents had a drinking problem) Suicide Attemps/Completions: No Addiction History opioids, methamphetamines, heroin Social History Childhood: . Born in [place] Abuse/Trauma:. Denies any history of being abused Current Living Situation: . Was living alone in his own house Education: . High school Employment: . Has a construction business Social Support: ., Unclear Legal: . Denies any legal issues Marital: ., Never , single Mental Status Examination General Appearance: appears stated age Build: average Demeanor: average, withdrawn Eye Contact: average, fair Behavior: cooperative, loss of interests, withdrawn Speech: clear, slow, low in volume, non-spontaneous Mood: depressed, anxious Affect: constricted, appropriate, congruent Thought Process: logical/linear, depressed Thought Content (Delusions): none reported, denies SI, HI, AVH Thought Content (Other): none reported Thought Content (Aggressive): none reported Perception (Hallucinations): none reported Perception (Other): none reported Cognition (Impairment of): none reported Cognition(Intelligence Est.): average Oriented: Awake, Alert, Oriented times three Insight: fair Judgment: Poor Psychosis: Denies Diagnoses Depressive disorder NOS, opiate dependence, polysubstance abuse A-FIB/CHADSVASC A-FIB History Current/History of A-Fib/PAF?: No Current PO Anticoag Therapy: No Age/Risk Factor Scoring CHADSVASC: CHADSVASC Response (Comments) Value Gender Risk Factor Male 0 Hx of CHF No 0 Hx of HTN No 0 Hx of Stroke/TIA/or VTE No 0 Hx of Diabetes No 0 Hx of Vascular Disease No 0 Total 0 Treatment Treatment ordered: NONE Assessment Patient appears markedly depressed, but denies any more suicidal plan or intent. He would like to be referred back to his methadone maintenance program. , We will treat with the supportive psychotherapy and antidepressant medicine and continued lethality evaluation Initial Treatment Plan 1. Patient was admitted on a [9.39] status. 2. Complete history was obtained. 3. With patients permission, family will be contacted and database will be expanded. 4. Patients medication regimen will be reviewed and changed accordingly. 5. Patient will be provided with protected environment. 6. Patient will be treated with individual, group, and milieu therapies. 7. Patient will receive supportive psych-education. 8. Discharge planning will commence immediately. 9. Outpatient follow-up treatment will be strongly recommended. 10. The initial treatment plan will focus initially on: * Depression. * Risk for suicide. ESTIMATED LENGTH OF STAY: - DAYS. TIME SPENT COUNSELING AND COORDINATING INITIAL CARE: minutes. Tobacco Cessation Screen If Patient is a Smoker Denies being a smoker N/A-No Antipsychotics Vital Signs Vital Signs Date Time Temp Pulse Resp B/P (MAP) Pulse Ox O2 Delivery O2 Flow Rate FiO2 11/15/20 10:39 100 157/111 11/15/20 07:16 97.5 18 98 Room Air Medications Scheduled Albuterol Sulfate (Ventolin Hfa) 18 Gm Hfa.aer.ad, 2 PUFF INH RQID Amlodipine Besylate (Amlodipine Besylate) 5 Mg Tablet, 5 MG PO DAILY Diazepam (Diazepam) 5 Mg Tablet, 5 MG PO Q12H Folic Acid (Folic Acid) 1 Mg Tablet, 1 MG PO DAILY Levofloxacin (Levofloxacin) 750 Mg Tablet, 750 MG PO DAILY@06 Multivitamins (Thera M Plus Tablet) 1 Each Tablet, 1 TAB PO DAILY Pantoprazole Sodium (Pantoprazole Sodium) 40 Mg Tablet.dr, 40 MG PO DAILY Thiamine Hcl (Vitamin B-1) 100 Mg Tablet, 100 MG PO DAILY Scheduled PRN Acetaminophen (Acetaminophen) 325 Mg Tablet, 650 MG PO Q4HP PRN for MILD PAIN OR FEVER Lorazepam (Lorazepam) 2 Mg Tablet, 2 MG PO Q4H PRN for SEE PROTOCOL Allergies Coded Allergies: No Known Allergies (Unverified , 11/14/20) JANICE VALDIVIA M.D. Nov 15, 2020 12:10
[2020-11-15] MEDS: buPROPion (WELLBUTRIN SR) 100 MG SR TAB PO SCH ×2 (13:00→20:06)
--- NOTE | 2020-11-15 14:30 | CR ---
CONSULTATION DATE: 11/15/2020 CHIEF COMPLAINT: Routine medical examination. HISTORY OF PRESENT ILLNESS: This is a 35-year-old male who was admitted on 11/11/2020 to the intensive care unit after being dropped off by his friends, being found with altered mental status, combativeness and abusiveness, attempting to kill himself after taking a large amount of Xanax 20 mg. Patient's urine toxicology screen at that time was positive for benzodiazepines, cocaine, cannabinoids and opioids. Patient was disruptive and combative requiring restraints, given Haldol and became sonorous. He had episodes of hypoxia and apnea and was subsequently intubated and transferred to the intensive care unit (ICU) due to respiratory failure secondary to polypharmacy overdose due to recreational drug use and attempts at suicide. Patient was intubated, sedated, mechanically ventilated by paintings restorer, Dr. Gautam, with deep venous thrombosis (DVT) prophylaxis and ulcer prophylaxis. There was a question of aspiration. Patient was treated with antibiotics. He was afebrile with white count increasing to 15.3, 100.1 low grade temperature. Sputum culture grew out group C Streptococcus, Streptococcus pneumoniae, yeast-like organism, Moraxella, group A Streptococcus, all of which are sensitive to Levaquin. Patient was initially on intravenous Zosyn and was switched to Levaquin to complete seven days of antibiotics. After medical discharge to psychiatric unit, he did undergo fiberoptic bronchoscopy due to progressive atelectasis, mucus plugging and significant secretions at that time. Once medically stable, patient was extubated, but he developed benzodiazepine withdrawal and was kept on CIWA protocol and Valium. Blood pressure was uncontrolled and treated with Norvasc. Psychiatrist, Dr. Kumar Momin was consulted for suicidal attempt. Patient was subsequently transferred to the psychiatric unit on 11/14/2020. This medical consultation was asked for on 11/15/2020. Patient currently denies any cough, fever, chills, nausea, vomiting, dysphagia, odynophagia or sore throat. No nausea or vomiting. He has had no constipation or diarrhea. No other new complaints. PAST MEDICAL HISTORY: Polysubstance abuse with heroin, Xanax, cannabinoids, benzodiazepines and opiates. PAST SURGICAL HISTORY: None. ALLERGIES: No known drug allergies. CURRENT HOSPITAL MEDICATIONS IN THE PSYCHIATRIC UNIT: - bupropion 100 mg twice a day - Protonix 40 mg daily - Norvasc 5 mg daily - multivitamin one table daily - folic acid 1 mg daily - Levaquin 750 mg daily (patient is to complete a total of a seven day course) - thiamin 100 mg twice a day - albuterol two puffs four times a day - Chloraseptic spray every 6 hours as needed - Ativan 2 mg per [facility] protocol - nicotine patch 21 mg daily - Mylanta as needed - Milk of Magnesia as needed - Advil as needed - trazodone as needed SOCIAL HISTORY: Heroin addiction, polysubstance abuse with opioids. Dropped out of the methadone maintenance program about six months ago. Works in construction. Born in [place], lives alone in his own house. High school degree. Never . Currently single. FAMILY HISTORY: Mother and father are both . Mother at the age of 54, unknown reason. Father at the age of 61, unknown reason. REVIEW OF SYSTEMS: As per history of present illness (HPI). A 12 point system otherwise negative. PHYSICAL EXAMINATION: Temperature 97.5, pulse 74, respiratory rate 18, blood pressure 144/93, 98% on room air. GENERAL: Patient is awake, alert, oriented to person, place and time. No respiratory distress. No use of accessory respiratory muscles. HEENT: No jugular venous distention (JVD), thyromegaly or cervical lymphadenopathy. HEART: S1, S2. Sinus rhythm. No murmurs, rubs or gallops. ABDOMEN: Soft, nontender, nondistended. Positive bowel sounds. LUNGS: Diminished breath sounds. EXTREMITIES: No cyanosis, clubbing or pitting edema. LABORATORY DATA: Laboratory data, microbiology and imaging studies have all been reviewed. ASSESSMENT: This is a 35-year-old brought in due to polysubstance abuse with hypoxic respiratory failure, admitted to the intensive care unit (ICU), intubated, mechanically ventilated and extubated, developed acute toxic encephalopathy secondary to suicide attempt with drug overdose complicated by benzodiazepine withdrawal, uncontrolled hypertension, all of which have resolved. He is currently transferred to inpatient mental health unit for suicidal attempt, severe depression, completing seven days of oral Levaquin. IMPRESSION: 1. Aspiration pneumonia. Patient is to complete seven days of Levaquin 750 mg daily. 2. Recent hypoxic respiratory failure due to acute toxic encephalopathy from polysubstance abuse, resolved, status post intubation, mechanical ventilation. 3. Depression/suicide attempt. Managed per psychiatry. 4. Benzodiazepine withdrawal, resolved. 5. Uncontrolled hypertension secondary to withdrawal, resolved. Please re-consult if acute medical issues arise. Otherwise, hospitalist will sign off. [id number]
[2020-11-15] MEDS: traZODone 50 MG TAB PO PRN (21:43)
[2020-11-16] MEDS: LevoFLOXacin 750 MG TABLET PO SCH (05:51)
[2020-11-16 06:00] VITALS: BP 153/80
[2020-11-16] MEDS: ALBUTEROL 90 MCG/ACT 8GM HFA INHALER INH SCH ×4 (08:00→19:55)
[2020-11-16 08:12] VITALS: BP 139/98
[2020-11-16] MEDS: FOLIC ACID 1 MG TAB PO SCH (08:16)
[2020-11-16] MEDS: PANTOPRAZOLE 40MG TAB (PROTONIX) PO SCH (08:16)
[2020-11-16] MEDS: buPROPion (WELLBUTRIN SR) 100 MG SR TAB PO SCH ×2 (08:17→19:54)
[2020-11-16] MEDS: MULTIVITAMINS/MINERALS THERAP 1 TAB PO SCH (08:17)
[2020-11-16] MEDS: amLODIPine 5 MG TAB PO SCH (08:17)
[2020-11-16] MEDS: THIAMINE 100 MG TAB PO SCH ×2 (08:17→19:54)
--- NOTE | 2020-11-16 09:24 | MHIPNPDOC ---
[facility] Progress Note Progress Note DATE OF SERVICE: 11/16/20 The patient is in bed, in no acute distress, but quite withdrawn and appears depressed. Patient stated that he hardly slept last night because of physical discomfort from withdrawing from his opiate and benzodiazepine use. He is not showing any acute physical withdrawal, but is having significant difficulty. He cooperated with Wellbutrin and has no complaint of side effect. 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 He is strongly denying any further suicidal thoughts, but appears markedly depressed. He was given support and education and encouraged him to continue antidepressant treatment. HISTORY: . VITAL SIGNS: See below. NEW TEST RESULTS: . CURRENT MEDICATIONS: See below. MENTAL STATUS EXAMINATION: Patient is a 35-year old male, who is quiet, withdrawn. Speech: Is , low tone, but relevant. Language skills are good. Thought processes including: , Coherent, but not spontaneous and not productive. Thought content: . No psychotic symptoms and denies any more suicidal thoughts. Abstract reasoning, and computation: Fair. Description of associations: , Organized. Description of abnormal or psychotic thoughts: Denies any hallucination or paranoia. Judgment: fair. Insight: [ fair. . Orientation: , Oriented. Recent and remote memory: Good. Attention span and concentration: Fair. Language: . Fund of knowledge: . Mood: , Depressed. Affect: Blunted preoccupied. DIAGNOSES: 1. . Depressive disorder, NOS 2. ., Polysubstance dependence 3. . ASSESSMENT: Remained markedly depressed, but denies any more suicidal thoughts MANAGEMENT PLAN: Continued supportive therapy. Lethality evaluation and Wellbu trae for depression. TIME SPENT: 20 minutes. Vital Signs Vital Signs Date Time Temp Pulse Resp B/P (MAP) Pulse Ox O2 Delivery O2 Flow Rate FiO2 11/16/20 08:17 102 139/98 11/15/20 07:16 97.5 18 98 Room Air Current Medications Current Medications Medications (Trade) Dose Ordered Sig/Benito Route PRN Reason Start Time Stop Time Status Last Admin Dose Admin Al Hydrox/Mg Hydrox/Simethicone (Mylanta) 30 ml Q4HP PRN PO HEARTBURN/INDIGESTION 11/14/20 16:10 Albuterol Sulfate (Proventil, Ventolin Hfa) 2 puff RQID INH 11/14/20 20:00 Amlodipine Besylate (Norvasc) 5 mg DAILY PO 11/15/20 09:00 11/16/20 08:17 Bupropion HCl (Wellbutrin Sr) 100 mg BID PO 11/15/20 09:00 11/16/20 08:17 Diazepam (Valium) 5 mg BID PO 11/14/20 21:00 11/15/20 10:17 DC 11/15/20 08:11 Folic Acid (Folic Acid) 1 mg DAILY PO 11/15/20 09:00 11/16/20 08:16 Home Med (Med Rec Complete!) ASDIRECTED XX 11/14/20 19:05 11/14/20 19:04 DC Ibuprofen (Advil) 400 mg Q6HP PRN PO PAIN 11/14/20 16:10 11/16/20 08:17 Levofloxacin (Levaquin) 750 mg DAILY@06 PO 11/15/20 06:00 11/16/20 05:51 Lorazepam (Ativan) 2 mg ASDIRECTED PRN PO SEE PROTOCOL 11/14/20 16:10 11/15/20 20:06 Magnesium Hydroxide (Milk Of Magnesia) 30 ml DAILYPRN PRN PO CONSTIPATION 11/14/20 16:10 Multivitamins (Theragram-M) 1 tab DAILY PO 11/15/20 09:00 11/16/20 08:17 Nicotine (Nicoderm Cq 21mg) 1 patch DAILYPRN PRN TD smoking cessation 11/14/20 16:10 11/15/20 10:45 Pantoprazole Sodium (Protonix) 40 mg DAILY PO 11/15/20 09:00 11/16/20 08:16 Phenol (Chloraseptic [place]) 1 spray Q6HP PRN MT SORE THROAT 11/14/20 16:10 Thiamine HCl (Thiamine HCl) 100 mg BID PO 11/14/20 21:00 11/17/20 20:59 11/16/20 08:17 Trazodone HCl (Desyrel) 50 mg QHSP PRN PO INSOMNIA 11/14/20 16:10 11/15/20 21:43 Allergies Coded Allergies: No Known Allergies (Unverified , 11/14/20) JANICE VALDIVIA M.D. Nov 16, 2020 09:24
[2020-11-16 15:00] VITALS: BP 139/86
[2020-11-16 16:09] VITALS: BP 139/86
[2020-11-16] MEDS: traZODone 50 MG TAB PO PRN (19:54)
[2020-11-16] MEDS: QUEtiapine FUMARATE 100 MG TAB PO SCH (19:54)
[2020-11-16 22:00] VITALS: BP 142/88
[2020-11-17] MEDS: LevoFLOXacin 750 MG TABLET PO SCH (05:41)
[2020-11-17 05:55] VITALS: BP 147/88
[2020-11-17] MEDS: ALBUTEROL 90 MCG/ACT 8GM HFA INHALER INH SCH ×4 (07:51→20:00)
[2020-11-17] MEDS: PANTOPRAZOLE 40MG TAB (PROTONIX) PO SCH (09:18)
[2020-11-17] MEDS: FOLIC ACID 1 MG TAB PO SCH (09:18)
[2020-11-17] MEDS: amLODIPine 5 MG TAB PO SCH (09:18)
[2020-11-17] MEDS: THIAMINE 100 MG TAB PO SCH (09:18)
[2020-11-17] MEDS: buPROPion (WELLBUTRIN SR) 100 MG SR TAB PO SCH ×2 (09:18→20:29)
[2020-11-17] MEDS: MULTIVITAMINS/MINERALS THERAP 1 TAB PO SCH (09:18)
[2020-11-17] MEDS: cloNIDine 0.1MG TABLET PO SCH ×3 (09:20→20:29)
[2020-11-17 09:22] VITALS: BP 156/92
--- NOTE | 2020-11-17 13:13 | MHIPN ---
PENDING SALE TO [facility] PROGRESS NOTE DATE: 11/17/2020 The patient says, "I am doing okay." The patient tends to mumble. He is very difficult to understand, but basically seemed to say that he is depressed on and off, and he feels that he is still having withdrawal from opioids, and he is not sleeping good at night. MENTAL STATUS EXAMINATION: The patient was alert and oriented times three. Eye contact is fair. As I said, he tended to somewhat mumble. There was no formal thought disorder noted. His is "okay.' Affect is flat. He is not psychotic. He is denying suicidal or homicidal ideation. Concentration is fair. Memory fair. Insight and judgment poor. DIAGNOSES: 1. Unspecified depressive disorder. 2. Polysubstance dependence. TREATMENT PLAN: At this point, the patient will be monitored for continued elevation and stabilization of his mood and resolution of suicidal ideations. In addition, I will start him on clonidine 0.1 mg three times a day to help with opioid withdrawal, and I will increase the trazodone to 100 mg every night as needed for insomnia.
[2020-11-17] MEDS ORDERED: OLANZapine ORAL DISINTEGRATING TAB 5MG PO PRN (13:40)
[2020-11-17] MEDS: QUEtiapine FUMARATE 100 MG TAB PO SCH (20:27)
[2020-11-17] MEDS: traZODone 50 MG TAB PO PRN (20:30)
[2020-11-17 21:49] VITALS: BP 142/67
[2020-11-18] VITALS (7 sets, daily range): BP systolic 109–156; BP diastolic 61–103
[2020-11-18] MEDS: LevoFLOXacin 750 MG TABLET PO SCH (05:14)
[2020-11-18] MEDS: ALBUTEROL 90 MCG/ACT 8GM HFA INHALER INH SCH ×4 (08:00→20:00)
[2020-11-18] MEDS: NICOTINE 21MG/24HR 1 EA TRANSDERMAL TD PRN (09:25)
[2020-11-18] MEDS: MULTIVITAMINS/MINERALS THERAP 1 TAB PO SCH (09:26)
[2020-11-18] MEDS: PANTOPRAZOLE 40MG TAB (PROTONIX) PO SCH (09:26)
[2020-11-18] MEDS: cloNIDine 0.1MG TABLET PO SCH ×3 (09:26→21:00)
[2020-11-18] MEDS: amLODIPine 5 MG TAB PO SCH (09:26)
[2020-11-18] MEDS: FOLIC ACID 1 MG TAB PO SCH (09:26)
[2020-11-18] MEDS: buPROPion (WELLBUTRIN SR) 100 MG SR TAB PO SCH ×2 (09:28→21:00)
[2020-11-18] MEDS: LORazepam 2 MG TAB PO PRN (17:40)
[2020-11-18] MEDS: QUEtiapine FUMARATE 100 MG TAB PO SCH (21:00)
[2020-11-19 01:36] VITALS: BP 147/95
[2020-11-19 01:37] VITALS: BP 147/95
[2020-11-19] MEDS: QUEtiapine FUMARATE 100 MG TAB PO SCH (01:37)
[2020-11-19] MEDS: cloNIDine 0.1MG TABLET PO SCH ×2 (01:37→09:00)
[2020-11-19] MEDS: buPROPion (WELLBUTRIN SR) 100 MG SR TAB PO SCH (01:38)
[2020-11-19] MEDS: LORazepam 2 MG TAB PO PRN ×2 (01:40→11:00)
[2020-11-19 04:34] VITALS: BP 143/75
[2020-11-19] MEDS: LevoFLOXacin 750 MG TABLET PO SCH (05:30)
[2020-11-19 06:26] VITALS: BP 143/75
[2020-11-19] MEDS: ALBUTEROL 90 MCG/ACT 8GM HFA INHALER INH SCH (08:00)
[2020-11-19] MEDS ORDERED: buPROPion **SR TABLET** (ZYBAN) 150MG PO SCH (09:00)
[2020-11-19] MEDS: PANTOPRAZOLE 40MG TAB (PROTONIX) PO SCH (09:00)
[2020-11-19] MEDS: MULTIVITAMINS/MINERALS THERAP 1 TAB PO SCH (09:00)
[2020-11-19] MEDS: FOLIC ACID 1 MG TAB PO SCH (09:00)
[2020-11-19] MEDS: amLODIPine 5 MG TAB PO SCH (09:00)
[2020-11-19] MEDS ORDERED: QUET100T2 PO (09:30)
[2020-11-19] MEDS ORDERED: BUPR15TASR PO (09:30)
--- NOTE | 2020-11-19 10:50 | MHDSPDOC ---
[facility] Discharge Summary Discharge Summary DATE OF ADMISSION: Nov 14, 2020 at 17:35 DATE OF DISCHARGE: 11/19/2020 DISCHARGE DIAGNOSES: 1. . Depressive disorder, NOS 2. . Opiate dependence and polysubstance abuse REASON FOR ADMISSION: Patient was admitted after taking mixed overdose of heroine and Xanax as a suicidal attempt. Patient reports feeling depressed after recent of his girlfriend and another friend from accidental overdose. The patient has extensive history of opiate dependence and polysubstance abuse including benzodiazepine use. CONSULTANTS INVOLVED: TREATMENT AND PROGRESS ON THE UNIT : The patient was transferred after he was medically stabilized at ICU. He was continued on his Levaquin for 7 days and when necessary Ativan. For his depression. He was started on Wellbutrin and rhythm milligram twice a day increased 150 mg twice a day and given Seroquel 100 mg at bedtime. He has fully cooperated with the medication and tolerated it without any side effect. He reports feeling much better with his antidepressant medicine and becoming more animated, pleasant and denies any suicidal thoughts.. HOSPITAL COURSE: The patient is fully cooperated with the treatment and maintained good control without any acting out behavior. 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 He has his own house and states that he would get back into a methadone maintenance program. He is not showing any psychotic symptoms, and showing more animated affect and is requesting discharge. DISCHARGE ASSESSMENT: Improved, stable and not suicidal MENTAL STATUS EXAMINATION ON DISCHARGE: Patient is a 35-year old male, who is in no acute distress. Speech is rational, coherent. Language skills are good. Thought processes including: Relevant. Thought content: Denies any suicidal thoughts. Abstract reasoning, and computation: fair. Description of associations: , Organized. Description of abnormal or psychotic thoughts: Denies any hallucination, paranoia. Judgment: fair. Insight: Fair. Orientation to , well oriented. Recent and remote memory: Fair. Attention span and concentration: Fair. Language: . Fund of knowledge: . Mood: Reports feeling better and feeling more hopeful. Affect: , Somewhat blunted but appropriate. MEDICATIONS ON DISCHARGE: - for ., Seroquel 100 mg at bedtime. 7 days with a 3 refills - for ., Wellbutrin, 150 mg twice a day, 7 days with a three-week period - for . PLAN/FOLLOWUP ARRANGEMENTS: Patient will arrange his own methadone maintenance program. The amount of time spent in the coordination of care for this patient was approximately 35 minutes. ETOH/Disorder Med Rx ETOH/DRUG DISORDER RX: N/A Vital Signs/I&Os Vital Signs Date Time Temp Pulse Resp B/P (MAP) Pulse Ox O2 Delivery O2 Flow Rate FiO2 11/19/20 06:26 98.1 86 20 143/75 (97) 97 Room Air Medications Scheduled Albuterol Sulfate (Ventolin Hfa) 18 Gm Hfa.aer.ad, 2 PUFF INH RQID for 30 Days, #1 Amlodipine Besylate (Amlodipine Besylate) 5 Mg Tablet, 5 MG PO DAILY for 30 Days, #30 Bupropion HCl (Bupropion HCl Sr) 150 Mg Tab.er.12h, 150 MG PO BID for depression for 7 Days, #14 Folic Acid (Folic Acid) 1 Mg Tablet, 1 MG PO DAILY for 30 Days, #30 Levofloxacin (Levofloxacin) 750 Mg Tablet, 750 MG PO DAILY@06 for 7 Days, #7 Multivitamins (Thera M Plus Tablet) 1 Each Tablet, 1 TAB PO DAILY for 30 Days, #30 Quetiapine Fumarate (Quetiapine Fumarate) 100 Mg Tablet, 100 MG PO QHS for mood for 7 Days, #7 Scheduled PRN Acetaminophen (Acetaminophen) 325 Mg Tablet, 650 MG PO Q4HP PRN for MILD PAIN OR FEVER for 30 Days, #60 Allergies Coded Allergies: No Known Allergies (Unverified , 11/14/20) JANICE VALDIVIA M.D. Nov 19, 2020 10:50
[2020-11-19 10:54] VITALS: BP 140/90
--- NOTE | 2020-11-19 13:49 | MHIPN ---
[facility] PSYCHIATRIC PROGRESS NOTE DATE: 11/18/2020 HISTORY OF PRESENT ILLNESS: The patient says that he is doing good. He says he is not depressed. He says he cannot remember the overdose. He thinks it was because he was not getting enough rest. 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 MENTAL STATUS EXAM: This patient is alert and oriented times 3. Eye contact is fair. Psychomotor activity is decreased. He is verbally spontaneous. There is no formal thought disorder. He says his mood is good. Affect is flat. He is not psychotic, suicidal or homicidal. Concentration is fair. Insight and judgment is fair. DIAGNOSES: 1. Unspecified depressive disorder. 2. Polysubstance dependence. TREATMENT PLAN: We will continue to monitor the patient for continued elevation and stabilization of mood and continued resolution of suicidal ideation.
== END 2020-11-19 11:04 | disposition home or self-care (01) | DRG 754 ==
LOC: M PSY 17:35
PROVIDERS: ADMIT Psychiatry & Neurology Psychiatry; ATTEND Psychiatry & Neurology Psychiatry
DX: F32.9 Major depressive disorder, single episode, unspecified (principal); F11.20 Opioid dependence, uncomplicated; Z79.899 Other long term (current) drug therapy